=== PATIENT | female | born 1995 | race Caucasian/White ===

== ENCOUNTER 2024-03-22 10:30 | Outpatient (RCR) | payer MEDICAID, SELFPAY | END 2024-07-20 23:59 | disposition home or self-care (01) | PROVIDERS: PCP Family Medicine; Visit Provider Family Medicine | DX: M25.532 Pain in left wrist (principal); Z51.89 Encounter for other specified aftercare | CPT/HCPCS: 97035; 97110; 97140; 97165; X5282 ==

== ENCOUNTER 2024-07-14 11:38 | Outpatient (CLI) | payer MEDICAID, SELFPAY ==
--- OUTSIDE RECORDS SUMMARY | 2024-07-14 11:41 | XMS_ITS | Clinical Summary ---
Author Organization Done In :[facility] Address [place], [place] [address] Care Team Providers Care Veterinary Medicine Doctor Name Role Phone Maria RKaylyn DO Primary Care Provider [phone]- [phone] Allergies Active Allergy Reactions Criticality Noted Date Comments Azithromycin Edema 01/09/2019 Medications Medication Sig Dispensed Refills Start Date End Date Status VENTOLIN HFA 90 mcg/actuation inhaler Inhale 1-2 Puffs by mouth every 4 hours if needed. 5 12/13/2018 Active cholecalciferol, Vitamin D3, 5,000 unit tab tabletIndications:V itamin D deficiency Take 1 Tablet (5,000 units) by mouth once daily. Take with food to enhance absorption. Will recheck levels in 3 months. 90 Tablet 1 03/11/2023 Active medication order composer Natural Factors Wilcox-3 1000 mg combined EPA / DHA daily 0 04/05/2023 Active testosterone cypionate 200 mg/mL injection Weekly testosterone injections 04/25/2024 Active vilazodone 20 mg tabletIndications:D ysthymia,ARTURO (generalized anxiety disorder) Take 1 Tablet (20 mg) by mouth once daily. 90 Tablet 1 04/25/2024 Active gabapentin (NEURONTIN) 100 mg capsuleIndications: Left elbow pain Take 2 caps at night of 1 week, then increase to 3 caps(300mg) at night. 90 Capsule 2 06/08/2024 Active buPROPion (WELLBUTRIN XL) 150 mg Extended-Release tabletIndications:D ysthymia Take 1 Tablet (150 mg) by mouth once daily in the morning. 90 Tablet 08/25/2024 Active methylphenidate HCl (RITALIN ER) 10 mg Extended-Release tabletIndications:A ttention and concentration deficit Take 1 Tablet (10 mg) by mouth once daily. 30 Tablet 06/26/2024 Active methylphenidate HCl (RITALIN ER) 10 mg Extended-Release tabletIndications:A ttention and concentration deficit Take 1 Tablet (10 mg) by mouth once daily. 30 Tablet 07/26/2024 Active methylphenidate HCl (RITALIN ER) 10 mg Extended-Release tabletIndications:A ttention and concentration deficit Take 1 Tablet (10 mg) by mouth once daily. 30 Tablet 08/12/2024 Active Active Problems Problem Noted Date Diagnosed Date Controlled substance agreement signed 08/31/2022 Overview: Signed 07-27-2022. Ewelina Pierce DNP, APRN [employer] Psychiatry Encounters Date Type Department Care Team Description 07/13/2024 4:15 PM CDT Ancillary Procedure [address] [address] Arrived 07/13/2024 Travel 06/15/[address] [address] Stanislav Schmidt MD Results 06/13/2024 3:30 PM CDT Office Visit [address] [address] Ewelina Pierce NP Medication Management (Things are going okay) 06/13/2024 Travel 06/08/2024 12:00 PM CDT Ancillary Procedure [address] [address] 06/08/2024 10:45 AM CDT Office Visit [address] [address] Stanislav Schmidt MD Musculoskeletal Problem (Follow-up LEFT Wrist pain. Pain is now into Elbow /DOO: 06/2023) 06/08/2024 Travel 04/25/2024 1:30 PM CDT Office Visit [address] [address] Ewelina Pierce NP Medication Management 04/25/2024 Travel from Last 3 Months Immunizations Name Administration Dates Next Due COVID-19 vaccine (Moderna 100mcg/0.5mL) PF, MDCeleste 10/08/2021,02/21/2021,01/23/2021 Influenza, IIV4 08/12/2022,,10/29/2020,08/29/20 20,10/03/2015 Tdap 12/09/2021,09/26/2012 Family History Medical History Relation Name Comments Depression Father Lung cancer Paternal Aunt Relation Name Status Comments Father Paternal Aunt Social History Tobacco Use Types Packs/Day Years Used Date Smoking Tobacco: Never Smokeless Tobacco: Never Tobacco Cessation:Counseling Given: Yes Alcohol Use Standard Drinks/Week Comments Yes 0 (1 standard drink = 0.6 oz pure alcohol) Occasionally/few times a month at most - 03/09/2023 PHQ-2 Answer Date Recorded PHQ-2 TOTAL SCORE 4 06/13/2024 Social Connections Answer Date Recorded Frequency of Communication with Friends and Fami ly 0 03/22/2024 Alcohol Use Answer Date Recorded How often do you have a drink containing alcohol ? 2 03/09/2023 Average Number of Drinks Not on file 023 Frequency of Binge Drinking Not on file 02/27 Financial Resource Strain Answer Date R ecorded Difficulty of Paying Living Expenses 3 03/22/2024 Difficulty of Paying Living Expenses Not on file 03/22/2024 Food Insecurity Answer Date Recorded Worried About Running Out of Food in the Last Ye ar 1 03/22/2024 Transportation Needs Answer Date Record ed Lack of Transportation (Medical) 1 03/22/2024 Housing Stability Answer Date Recorded Unable to Pay for Housing in the Last Year 1 03/22/2024 Sex and Gender Information Value Date Recorded Sex Assigned at Not on file Gender Identity Not on file Sexual Orientation Not on file Obstetrics History Last Filed Vital Signs Vital Sign Reading Time Taken Comments Blood Pressure 104/68 06/13/2024 3:23 PM CDT Pulse 74 06/13/2024 3:23 PM CDT Temperature 36.7 ??C (98.1 ??F) 02/09/2023 7:44 AM CD T Respiratory Rate 16 05/25/2023 11:51 AM CDT Oxygen Saturation 98% 06/08/2024 10:50 AM CDT Inhaled Oxygen Concentration - - Weight 71.9 kg (158 lb 8 oz) 06/13/2024 3:23 PM CDT Height 170.2 cm (5' 7) 06/13/2024 3:23 PM CDT Body Mass Index 24.82 06/13/2024 3:23 PM CDT Plan of Treatment Upcoming Encounters Date Type Department Care Team (Late st Contact Info) Description 08/16/2024 9:00 AM CDT Appointment [facility] EMG/EEG/EP [address] [place] [address] Kathie Newton MD [address] [facility] [address] [place] [address] 08/21/2024 3:00 PM CDT Office Visit [facility] [address] [place] [address] Ewelina Pierce NP [address] [place] [address] Health Maintenance Due Date Last Done Comments Influenza for age 9-49 07/30/2024 , 01/09/2022, 10/29/2020, Additional history exists Pap test for age 21-65 12/09/2024 12/09/2021, 2017 BMI (ht and wt on same day) for age 18+ 06/13/2025 06/13/2024, 03/22/2024, 05/25/2023, Additional history exists Depression screening for age 12+ 06/15/2025 06/15/2024, 06/13/2024, 04/25/2024, Additional history exists Tetanus booster 12/09/2031 12/09/2021, 09/26/2012 Tdap Completed 12/09/2021, 09/26/2012 HIV for age 15-65 Completed 02/09/2023 Hepatitis C screening for age 18-79 Completed 02/09/2023 COVID-19 vaccine series Completed 09/22/20 23, 09/18/2022, 10/08/2021, Additional history exists Pneumococcal series for age 6-64 Aged Out No longer eligible based on patient's age to complete this topic Procedures Procedure Name Priority Date/Time Associated Diagnosis Comments MR ELBOW LEFT WO Routine 07/13/2024 3:42 PM CDT Left elbow pain Numbness of left hand XR ELBOW 3 VIEWS LEFT Routine 06/08/2024 11:53 AM CDT Left elbow pain LC HIV-1/O/2, 4TH GENERATION Routine 02/09/2023 8:24 AM CDT Encounter for screening for HIV LC HCV ANTIBODY RFX TO QUANT PCR Routine 02/09/2023 8:24 AM CDT Need for hepatitis C screening test AUTO RENTAL SUPERVISOR THIN PREP PAP SCREEN IMAGED Routine 12/09/2021 12:30 PM DOWEL INSERTING MACHINE OPERATOR from Last 3 Months or Most Recently Relevant to Health Maintenance Results * MR ELBOW LEFT WO (07/13/2024 3:42 PM CDT) Anatomical Region Laterality Modality ELBOW L Magnetic Resonan ce 07/14/2024 7:57 AM CDT Impressions 07/14/2024 7:57 AM CDT 1. Unremarkable MRI of the left elbow. No evidence for stress reaction. Dictated by Miguel Marie MD @ 07/14/2024 7:57:49 AM (Electronically Signed) Narrative 07/14/2024 7:57 AM CDT For Patients: ??As a result of the Century Cures Act, medical imaging exams and procedure reports are released immediately into your electronic medical record. ??You may view this report before your referring provider. ??If you have questions, please contact your health care provider. EXAM: MRI OF THE LEFT ELBOW, WITHOUT CONTRAST CLINICAL INDICATION: Left elbow pain. Left hand numbness. Abnormal radiographs. COMPARISON PLAIN FILMS: 06/08/2024. COMPARISON CROSS-SECTIONAL IMAGING STUDIES: None. TECHNICAL: Axial, sagittal and coronal T1, PD, PD FS ??and STIR images. ??Surface coil. FINDINGS: MYOTENDINOUS STRUCTURES: Biceps: Intact. ??No tendinosis, tendon tear or bursitis. Common Extensor Tendon and Forearm Extensors: No tendon tear, tendinosis or muscle strain. Common Flexor Tendon and Forearm Flexors: No tendon tear, tendinosis or muscle strain. Brachialis: No strain or tear. Supinator: No strain or tear. Triceps: Normal. - LIGAMENTS: Medial Ligament: The ulnar collateral ligament is intact. Lateral Ligaments: The radial collateral ligament is intact. The lateral ulnar collateral ligament is intact. - ELBOW JOINT: Joint Space: Physiologic quantity of joint fluid. No synovitis. No loose bodies. Articular Cartilage: ??No cartilage defect or osteochondral abnormality. Radiohumeral Plica: No pathologic thickening or enlargement. Periarticular Ganglion/Cyst: None present. - BONES: No intramedullary edema or periosteal reaction to suggest stress reaction. No fracture or contusion. No osseous lesion. No evidence for avascular necrosis. - NERVES: Ulnar: Normal; without thickening, edema, mass or subluxation. Median: Normal. Radial: Normal. - SOFT TISSUES: There is no soft tissue mass or fluid collection. ?? Procedure Note Miguel Marie MD - 07/14/2024 For Patients: As a result of the Century Cures Act, medical imagingexams and procedure reports are released immediately into your electronicmedical record. You may view this report before your referring provider.If you have questions, please contact your health care provider. EXAM: MRI OF THE LEFT ELBOW, WITHOUT CONTRAST CLINICAL INDICATION: Left elbow pain. Left hand numbness. Abnormal radiographs. COMPARISON PLAIN FILMS: 06/08/2024. COMPARISON CROSS-SECTIONAL IMAGING STUDIES: None. TECHNICAL: Axial, sagittal and coronal T1, PD, PD FS and STIR images. Surfacecoil. FINDINGS: MYOTENDINOUS STRUCTURES: Biceps: Intact. No tendinosis, tendon tear or bursitis. Common Extensor Tendon and Forearm Extensors: No tendon tear, tendinosisor muscle strain. Common Flexor Tendon and Forearm Flexors: No tendon tear, tendinosis ormuscle strain. Brachialis: No strain or tear. Supinator: No strain or tear. Triceps: Normal. - LIGAMENTS: Medial Ligament: The ulnar collateral ligament is intact. Lateral Ligaments: The radial collateral ligament is intact. The lateralulnar collateral ligament is intact. - ELBOW JOINT: Joint Space: Physiologic quantity of joint fluid. No synovitis. No loosebodies. Articular Cartilage: No cartilage defect or osteochondral abnormality. Radiohumeral Plica: No pathologic thickening or enlargement. Periarticular Ganglion/Cyst: None present. - BONES: No intramedullary edema or periosteal reaction to suggest stress reaction.No fracture or contusion. No osseous lesion. No evidence for avascularnecrosis. - NERVES: Ulnar: Normal; without thickening, edema, mass or subluxation. Median: Normal. Radial: Normal. - SOFT TISSUES: There is no soft tissue mass or fluid collection. IMPRESSION: 1. Unremarkable MRI of the left elbow. No evidence for stress reaction. Dictated by Miguel Marie MD @ 07/14/2024 7:57:49 AM (Electronically Signed) Stanislav Schmidt MD MR * XR ELBOW 3 VIEWS LEFT (06/08/2024 11:53 AM CDT) Anatomical Region Laterality Modality ELBOW L Computed Radiogr aphy 06/12/2024 6:19 AM CDT Narrative 06/12/2024 6:19 AM CDT For Patients: ??As a result of the Cures Act, medical imaging exams and procedure reports are released immediately into your electronic medical record. ??You may view this report before your referring provider. ??If you have questions, please contact your health care provider. Indication: Elbow pain Technique: Left elbow 3 views Comparison: None Findings: Bones: Incidental bone island within the posterior olecranon. Increased density within the medial humeral epicondyle. Joint spaces: Joint spaces are well maintained. No degenerative changes. No sign of joint effusion. ?? Soft tissues: Unremarkable. ?? Impression: Possible stress reaction in the subcortical bone of the medial humeral epicondyle. Dictated by Dalton Huizar MD @ 06/12/2024 6:19:31 AM (Electronically Signed) Procedure Note Dalton Huizar MD - 06/12/2024 For Patients: As a result of the Cures Act, medical imagingexams and procedure reports are released immediately into your electronicmedical record. You may view this report before your referring provider.If you have questions, please contact your health care provider. Indication: Elbow pain Technique: Left elbow 3 views Comparison: None Findings: Bones: Incidental bone island within the posterior olecranon. Increaseddensity within the medial humeral epicondyle. Joint spaces: Joint spaces are well maintained. No degenerative changes.No sign of joint effusion. Soft tissues: Unremarkable. Impression: Possible stress reaction in the subcortical bone of the medial humeralepicondyle. Dictated by Dalton Huizar MD @ 06/12/2024 6:19:31 AM (Electronically Signed) Stanislav Schmidt MD GENERAL IMAGING * LC HCV ANTIBODY RFX TO QUANT PCR (02/09/2023 8:24 AM CDT) [facility] HCV Ab Non Reactive Non Reactive 02/11/2023 2:08 PM CDT [facility] Blood BLOOD SPECIMEN / Unknown Venipuncture / Unknown 02/09/2023 8:24 AM CDT 02/09/2023 8:24 AM CDT Narrative [facility] - 02/11/2023 2:08 PM CDT Performed at: ??[address] ??[id number] Cereal Maker: Harjeet Lutz MD, Phone: ??[phone] Donna [facility]ORAT[facility] ([facility]) [address] [place] [address] * LC HIV-1/O/2, 4TH GENERATION (02/09/2023 8:24 AM CDT) [facility] HIV Scr 4th Gen Non Reactive Non Reactive 02/11/2023 2:08 PM CDT [facility] Comment: HIV Negative HIV-1/HIV-2 antibodies and HIV-1 p24 antigen were NOT detected. There is no laboratory evidence of HIV infection. Blood BLOOD SPECIMEN / Unknown Venipuncture / Unknown 02/09/2023 8:24 AM CDT 02/09/2023 8:24 AM CDT Narrative [facility] - 02/11/2023 2:08 PM CDT Performed at: ??01 - [facility] [address] [place], [place] ??[id number] Cereal Maker: Harjeet Lutz MD, Phone: ??[phone] Donna MAST [facility]ORAT[facility] ([facility]) [facility] [place] [address], * AUTO RENTAL SUPERVISOR THIN PREP PAP SCREEN IMAGED (12/09/2021 12:30 PM DOWEL INSERTING MACHINE OPERATOR) Case Report Gynecologic Cytology Report ? Case: [id number] ? Authorizing Provider: ??Yodit Solorzano PA-C ?Collected: ? 12/09/2021 1230 ? Ordering Location: ? [facility] ?Received: ?12/10/2021 0846 ? First Screen: ?Jane Cote ? Specimen: ?AUTO RENTAL SUPERVISOR ThinPrep Vial Screening, Cervical/Vaginal ? 12/17/2021 1:52 PM DOWEL INSERTING MACHINE OPERATOR [facility] [employer] [facility] INTERPRETATION/ RESULT NEGATIVE FOR INTRAEPITHELIAL LESION OR MALIGNANCY (NIL) (none) 12/17/2021 1:52 PM DOWEL INSERTING MACHINE OPERATOR [facility] IMEN ADEQUACY Satisfactory for evaluation No endocervical component seen 12/17/2021 1:52 PM DOWEL INSERTING MACHINE OPERATOR [facility] HPV REQUEST HPV if ASCUS 12/17/2021 1:52 PM DOWEL INSERTING MACHINE OPERATOR [facility] Date of LMP 12/09/2021 12/17/2021 1:52 PM DOWEL INSERTING MACHINE OPERATOR [facility] Last Pap Date 12/17/2021 1:52 PM DOWEL INSERTING MACHINE OPERATOR [facility] Comment:2018 Last Pap Result NIL 1:52 PM DOWEL INSERTING MACHINE OPERATOR [facility] Additional Information 12/17/2021 1:52 PM DOWEL INSERTING MACHINE OPERATOR [facility] Comment: Interpreted at [facility] [employer] [facility] - [address], [place] [address] Automated Review Successful 12/17/2021 1:52 PM DOWEL INSERTING MACHINE OPERATOR [facility] Comment:Specimen processed s uccessfully by automated assistant store leader device, ThinPrep Imaging System, [employer] Note The pap test is a screening technique, not a diagnostic procedure. It is used primarily to screen for squamous cancers and precursor lesions. Published studies have shown that it is subject to both false negative and false positive results. The pap test should not be used as the sole means to diagnose or exclude pre-malignant and malignant lesions. 12/17/2021 1:52 PM DOWEL INSERTING MACHINE OPERATOR [facility] [employer], [employer] [facility] Other (Cervical/Vagina l) 12/09/2021 12:30 PM DOWEL INSERTING MACHINE OPERATOR 12/10/2021 8:46 AM DOWEL INSERTING MACHINE OPERATOR February Jeanine MAST-C PATHOLOGY/CYTOLOGY [facility] [address] [place] [address], from Last 3 Months or Most Recently Relevant to Health Maintenance Care Teams Veterinary Medicine Doctor Relationship Specialty Start Date End Date Kaylyn Heck DO [address] [place] [address] PCP - General Family Practice 03/22/24
== END 2024-07-14 11:39 | disposition home or self-care (01) ==
PROVIDERS: PCP Family Medicine; Visit Provider Obstetrics & Gynecology
DX: N64.52 Nipple discharge (principal); Z79.899 Other long term (current) drug therapy
CPT/HCPCS: 80076; 84146; 84403; 84443

== ENCOUNTER 2024-09-25 13:23 | Outpatient (CLI) | payer MEDICAID, BC, SELFPAY ==
--- OUTSIDE RECORDS SUMMARY | 2024-09-25 14:06 | XMS_ITS | Clinical Summary ---
Author Organization [facility] Address [place], [place] [address] Care Team Providers Care Property Accountant Name Role Phone Maria R, Kaylyn Ugarte DO Primary Care Provider [phone] Allergies Active Allergy Reactions Criticality Noted Date [...] 03/11/2023 Active medication order composer Natural Factors [place]-3 1000 mg combined EPA / DHA daily 0 04/05/2023 Active testosterone cypionate 200 mg/mL injection Weekly testosterone injections 04/25/2024 Active buPROPion (WELLBUTRIN XL) 150 mg Extended-Release tabletIndications:D ysthymia Take 1 Tablet (150 mg) by mouth once daily in the morning. 90 Tablet 08/25/2024 Active methylphenidate HCl (RITALIN ER) 10 mg Extended-Release tabletIndications:M ajor depressive disorder, recurrent, moderate (HC),Attention and concentration deficit Take 1 Tablet (10 mg) by mouth once daily. 30 Tablet 09/18/2024 10/18/2024 Active methylphenidate HCl (RITALIN ER) 10 mg Extended-Release tabletIndications:M ajor depressive disorder, recurrent, moderate (HC),Attention and concentration deficit Take 1 Tablet (10 mg) by mouth once daily. 30 Tablet 10/18/2024 11/17/2024 Active methylphenidate HCl (RITALIN ER) 10 mg Extended-Release tabletIndications:Alva lanc[place] depressive disorder, recurrent, moderate (HC),Attention and concentration deficit Take 1 Tablet (10 mg) by mouth once daily. 30 Tablet 11/17/2024 Active Active Problems Problem Noted Date Diagnosed Date Controlled substance agreement signed 08/31/2022 Overview (08/31/2022): Signed 07-27-2022. Ewelina Pierce DNP PARTY PLAN SALES CONSULTANT PERSONAL BANKING ADVISOR[place] Psychiatry Encounters Date Type Department Care Team Description 08/24/2024 4:00 PM CDT Ancillary Procedure [address] [address] 08/24/2024 3:05 PM CDT Office Visit [facility] [address] [place] [address] Stanislav Schmidt MD Musculoskeletal Problem (Follow-up LEFT Elbow Pain) 08/24/2024 7:00 AM CDT Telemedicine [facility] [address] [place] [address] Ewelina Pierce NP Telehealth; Medication Management (Things are going all right) 08/24/2024 Travel 08/16/2024 9:00 AM CDT - 08/16/2024 11:59 PM CDT Hospital Encounter [facility] EMG/EEG/EP [address] [address] Stanislav Schmidt MD Beck, Elizabeth Haule, MD Left elbow pain 08/16/2024 Travel 07/13/2024 4:15 PM CDT Ancillary Procedure [facility] [address] [place] [address] 07/13/2024 Travel from Last 3 Months Immunizations Name Administration Dates Next Due COVID-19 vaccine (Moderna 100mcg/0.5mL) JOSIAH CRUMP 10/08/2021,02/21/2021,01/23/2021 Influenza, IIV4 08/12/2022, 2,10/29/2020,08/29/20 20,10/03/2015 Tdap 12/09/2021,09/26/2012 Family History Medical History [...] Answer Date Recorded PHQ-2 TOTAL SCORE 4 08/24/2024 Social Connections Answer Date Recorded Frequency of [...] file 03/22/2024 Food Insecurity Answer Date Recorded Do you worry your food will run out before you are able to buy more? 1 03/22/2024 Transportation Needs Answer Date Record ed Lack of Transportation (Medical) 1 03/22/2024 Housing Stability Answer Date Recorded What is your housing situation today? 1 03/22/2024 Sex and Gender Information Value Date Recorded Sex Assigned at Not on file Gender Identity Not on file Sexual Orientation Not on file Obstetrics History Last Filed Vital Signs Vital Sign Reading Time Taken Comments Blood Pressure 114/74 08/24/2024 3:07 PM CDT Pulse 83 08/24/2024 3:07 PM CDT Temperature 36.7 ??C (98.1 ??F) 02/09/2023 7:44 AM C DT Respiratory Rate 16 05/25/2023 11:51 AM CDT Oxygen Saturation 98% 08/24/2024 3:07 PM CDT Inhaled Oxygen Concentration - - Weight 74.6 kg (164 lb 8 oz) 08/24/2024 3:07 PM CDT Height 170.2 cm (5' 7) 06/13/2024 3:23 PM CDT Body Mass Index 25.76 06/13/2024 3:23 PM CDT Plan of Treatment Health Maintenance Due Date Last Done Comments Influenza for age 9-49 07/30/2024 , 01/09/2022, 10/29/2020, Additional history exists Pap test for age 21-65 12/09/2024 12/09/2021, 2017 BMI (ht and wt on same day) for age 18+ 06/13/2025 06/13/2024, 03/22/2024, 05/25/2023, Additional history exists Depression screening for age 12+ 08/24/2025 08/24/2024, 08/24/2024, 06/15/2024, Additional history exists Tetanus booster 12/09/2031 12/09/2021, 09/26/2012 Tdap Completed 12/09/2021, 09/26/2012 HIV for age 15-65 Completed 02/09/2023 Hepatitis C screening for age 18-79 Completed 02/09/2023 COVID-19 vaccine series Completed 08/05/20 24, 09/22/2023, 09/18/2022, Additional history exists Pneumococcal series for age 6-64 Aged Out No longer eligible based on patient's age to complete this topic Procedures Procedure Name Priority Date/Time Associated Diagnosis Comments XR SPINE CERVICAL 2 VIEWS Routine 08/24/2024 4:07 PM CDT Scapulalgia Neck pain on left side Nerve entrapment syndrome of left arm EMG Routine 08/16/2024 Left elbow pain MR ELBOW LEFT WO Routine 07/13/2024 3:42 PM CDT Left elbow pain Numbness of left hand LC HIV-1/O/2, 4TH GENERATION Routine 02/09/2023 8:24 AM CDT Encounter for screening for HIV LC HCV ANTIBODY RFX TO QUANT PCR Routine 02/09/2023 8:24 AM CDT Need for hepatitis C screening test ASSISTANT WRESTLING COACH THIN PREP PAP SCREEN IMAGED Routine 12/09/2021 12:30 PM MARKETING EFFECTIVENESS MANAGER from Last 3 Months or Most Recently Relevant to Health Maintenance Results * XR SPINE CERVICAL 2 VIEWS (08/24/2024 4:07 PM CDT) Anatomical Region Laterality Modality CERVICAL SPINE Computed Radiogr aphy 08/25/2024 3:09 PM CDT Impressions 08/25/2024 3:09 PM CDT No acute bone abnormality. Dictated by Braulio Keys MD @ 08/25/2024 3:09:12 PM (Electronically Signed) Narrative 08/25/2024 3:09 PM CDT For Patients: ??As a result of the Cures Act, medical imaging exams and procedure reports are released immediately into your electronic medical record. ??You may view this report before your referring provider. ??If you have questions, please contact your health care provider. INDICATION: Neck pain on left side. FINDINGS: AP and lateral views of the cervical spine were obtained. There is no acute fracture seen or subluxation. The disc space heights are maintained. There is no prevertebral soft tissue swelling. There is a small spur off the anterior inferior aspect of the C6 vertebral body. Procedure Note Braulio Keys MD - 08/25/2024 For Patients: As a result of the Cures Act, medical imagingexams and procedure reports are released immediately into your electronicmedical record. You may view this report before your referring provider.If you have questions, please contact your health care provider. INDICATION: Neck pain on left side. FINDINGS: AP and lateral views of the cervical spine were obtained. There is noacute fracture seen or subluxation. The disc space heights are maintained.There is no prevertebral soft tissue swelling. There is a small spur offthe anterior inferior aspect of the C6 vertebral body. IMPRESSION: No acute bone abnormality. Dictated by Braulio Keys MD @ 08/25/2024 3:09:12 PM (Electronically Signed) Stanislav Schmidt MD GENERAL IMAGING * EMG (08/16/2024) Stanislav Schmidt MD NEUROLOGY ORD * MR ELBOW LEFT WO (07/13/2024 3:42 [...] For Patients: As a result of the 21st Century Cures Act, medical imagingexams and procedure [...] (Electronically Signed) Stanislav Schmidt MD MR * LC HCV ANTIBODY RFX TO QUANT PCR (02/09/2023 8:24 AM CDT) HCV Ab Non Reactive Non Reactive 02/11/2023 2:08 PM CDT [facility] ([facility]) Blood BLOOD SPECIMEN / Unknown Venipuncture / Unknown 02/09/2023 8:24 AM CDT 02/09/2023 8:24 AM CDT [facility] ([facility]) - 02/11/2023 2:08 PM CDT Performed at: ??[address] ??[id number] Carcass Splitter: Harjeet Lutz MD, Phone: ??[phone] Donna [facility] Performing Organization Address [facility]/ZIP Co de Phone Number [facility] ([facility]) [address] [place] [address], * LC HIV-1/O/2, 4TH GENERATION (02/09/2023 8:24 AM CDT) HIV Scr 4th Gen Non Reactive Non Reactive 02/11/2023 2:08 PM CDT [facility] ([facility]) Comment: HIV Negative HIV-1/HIV-2 antibodies and HIV-1 p24 antigen were NOT detected. There is no laboratory evidence of HIV infection. Blood BLOOD SPECIMEN / Unknown Venipuncture / Unknown 02/09/2023 8:24 AM CDT 02/09/2023 8:24 AM CDT [facility] ([facility]ET) - 02/11/2023 2:08 PM CDT Performed at: ??[address] ??[id number] Carcass Splitter: Harjeet Lutz MD, Phone: ??[phone] Donna [facility] Performing Organization Address City/[facility]/ZIP Co de Phone Number [facility] ([facility]) [address] [place] [address], * ASSISTANT WRESTLING COACH THIN PREP PAP SCREEN IMAGED (12/09/2021 12:30 PM MARKETING EFFECTIVENESS MANAGER) Case Report Gynecologic Cytology Report ? Case: [id number] ? Authorizing Provider: ??Yodit Solorzano PA-C ?Collected: ? 12/09/2021 1230 ? Ordering Location: ? [facility] ?Received: ?12/10/2021 0846 ? First Screen: ?Jane Cote ? Specimen: ?ASSISTANT WRESTLING COACH ThinPrep Vial Screening, Cervical/Vaginal ? 12/17/2021 1:52 PM MARKETING EFFECTIVENESS MANAGER [employer]- ENTRAL LABORATORY INTERPRETATION/ RESULT NEGATIVE FOR INTRAEPITHELIAL LESION OR MALIGNANCY (NIL) (none) 12/17/2021 1:52 PM MARKETING EFFECTIVENESS MANAGER [facility] IMEN ADEQUACY Satisfactory for evaluation No endocervical component seen 12/17/2021 1:52 PM MARKETING EFFECTIVENESS MANAGER [facility]- EN[facility]AL LAB[facility] HPV REQUEST HPV if ASCUS 12/17/2021 1:52 PM MARKETING EFFECTIVENESS MANAGER [facility]-C ENTRAL LABORATORY Date of LMP 12/09/2021 12/17/2021 1:52 PM MARKETING EFFECTIVENESS MANAGER [employer]-[facility] ENTRAL LABORATORY Last Pap Date 12/17/2021 1:52 PM MARKETING EFFECTIVENESS MANAGER [facility]-C ENTRAL LABORATORY Comment:2018 Last Pap Result NIL 1:52 PM MARKETING EFFECTIVENESS MANAGER [facility]- ENTRAR LABORATORY Additional Information 12/17/2021 1:52 PM MARKETING EFFECTIVENESS MANAGER [facility]- ENTRAL LABORATORY Comment: Interpreted at [facility], Central Laboratory - [address], [place] [address] Automated Review Successful 12/17/2021 1:52 PM MARKETING EFFECTIVENESS MANAGER [facility] Comment:Specimen processed s uccessfully by automated spanish interpreter device, iMedXPrep Imaging System, [employer] Note The pap test is a screening technique, not a diagnostic procedure. It is used primarily to screen for squamous cancers and precursor lesions. Published studies have shown that it is subject to both false negative and false positive results. The pap test should not be used as the sole means to diagnose or exclude pre-malignant and malignant lesions. 12/17/2021 1:52 PM MARKETING EFFECTIVENESS MANAGER [facility] Other (Cervical/Vagina l) 12/09/2021 12:30 PM MARKETING EFFECTIVENESS MANAGER 12/10/2021 8:46 AM MARKETING EFFECTIVENESS MANAGER February Jeanine LYNNE PATHOLOGY/CYTOLOGY [facility]-CENTRAL LABORATORY [address] [place] [address], [place] from Last 3 Months or Most Recently Relevant to Health Maintenance Care Teams Property Accountant Relationship Specialty Start Date End Date Kaylyn Heck DO [facility] [address] PCP - General Family Practice 03/22/24
== END 2024-09-25 13:24 | disposition home or self-care (01) ==
PROVIDERS: PCP Family Medicine; Visit Provider Obstetrics & Gynecology
DX: J02.9 Acute pharyngitis, unspecified (principal)
CPT/HCPCS: 84403

== ENCOUNTER 2024-09-26 15:54 | Outpatient (CLI) | payer BC, MEDICAID, SELFPAY ==
--- OUTSIDE RECORDS SUMMARY | 2024-09-26 15:59 | XMS_ITS | Clinical Summary ---
Author Organization [facility] Address [place], [place] [address] Care Team Providers Care Pet Handler Name Role Phone Maria R, Kaylyn Ugarte DO Primary Care Provider [phone]- [phone] Allergies Active Allergy Reactions Criticality Noted Date [...] 03/11/2023 Active medication order composer Natural Factors [place]-3 1000 mg combined EPA / DHA daily [...] Overview (08/31/2022): Signed 07-27-2022. Ewelina Pierce DNP THERAPEUTIC RECREATION DIRECTOR SHOCK ABSORPTION FLOOR LAYER[employer] Psychiatry Encounters Date Type Department Care Team Description 08/24/2024 4:00 PM CDT Ancillary Procedure [address] [address] 08/24/2024 3:05 PM CDT Office Visit [facility] [address] [place] [address] Stanislav Schmidt MD Musculoskeletal Problem (Follow-up LEFT Elbow Pain) 08/24/2024 7:00 AM CDT Telemedicine [facility] [address] [place] [address] Ewelina Pierce NP Telehealth; Medication Management (Things are going all right) 08/24/2024 Travel 08/16/2024 9:00 AM CDT - 08/16/2024 11:59 PM CDT Hospital Encounter [facility]W EMG/EEG/EP [address] [address] Stanislav Schmidt MD Beck, Elizabeth Haule, MD Left elbow pain 08/16/2024 Travel 07/13/2024 4:15 PM CDT Ancillary Procedure [facility] [address] [place] [address] 07/13/2024 Travel from Last 3 Months Immunizations [...] 4 08/24/2024 Social Connections Answer Date Recorded Do you often feel lonely or isolated from those around you? 0 03/22/2024 Alcohol Use Answer Date Recorded [...] 03/22/2024 Transportation Needs Answer Date Record ed Does lack of transportation keep you from medica l appointments? 1 03/22/2024 Does lack of transportation keep you from work, meetings or getting things that you need? 1 03/22/2024 Housing Stability Answer Date Recorded [...] CDT Need for hepatitis C screening test MARKETING CONTENT MANAGER THIN PREP PAP SCREEN IMAGED Routine 12/09/2021 12:30 PM [employer] ROOM OPERATOR from Last 3 Months or Most [...] Reactive Non Reactive 02/11/2023 2:08 PM CDT [facility] ([facility]) Blood BLOOD SPECIMEN / Unknown Venipuncture / Unknown 02/09/2023 8:24 AM CDT 02/09/2023 8:24 AM CDT Narrative [facility] ([facility]ET) - 02/11/2023 2:08 PM CDT Performed at: ??[address] - [address] ??[id number] Set And Exhibit Designer: Harjeet Lutz MD, Phone: ??[phone] Donna [facility] Performing Organization Address [facility] Co de Phone Number [facility] ([facility]) [address] [place] [address] * HIV-1/O/2, 4TH GENERATION (02/09/2023 8:24 AM CDT) Pathologist [facility] HIV Scr 4th Gen Non Reactive Non Reactive 02/11/2023 2:08 PM CDT [facility] ([facility]) Comment: HIV Negative HIV-1/HIV-2 antibodies and HIV-1 p24 antigen were NOT detected. There is no laboratory evidence of HIV infection. Blood BLOOD SPECIMEN / Unknown Venipuncture / Unknown 02/09/2023 8:24 AM CDT 02/09/2023 8:24 AM CDT [facility] ([facility]) - 02/11/2023 2:08 PM CDT Performed at: ??[address] ??[id number] Set And Exhibit Designer: Harjeet Lutz MD, Phone: ??[phone] Donna [facility] Performing Organization Address City/[facility]/ZIP Co de Phone Number [facility] ([facility]ET) [address] [place] [address], * MARKETING CONTENT MANAGER THIN PREP PAP SCREEN IMAGED (12/09/2021 12:30 PM COCOA ROOM OPERATOR) Case Report Gynecologic Cytology Report ? Case: [id number] ? Authorizing Provider: ??Yodit Solorzano PA-C ?Collected: ? 12/09/2021 1230 ? Ordering Location: ? [facility] ?Received: ?12/10/2021 0846 ? First Screen: ?Jane Cote ? Specimen: ?MARKETING CONTENT MANAGER ThinPrep Vial Screening, Cervical/Vaginal ? 12/17/2021 1:52 PM COCOA ROOM OPERATOR [employer]-C ENTRAL LABORATORY INTERPRETATION/ RESULT NEGATIVE FOR INTRAEPITHELIAL LESION OR MALIGNANCY (NIL) (none) 12/17/2021 1:52 PM COCOA ROOM OPERATOR [employer]-C ENTRAL LABORATORY IMEN ADEQUACY Satisfactory for evaluation No endocervical component seen 12/17/2021 1:52 PM COCOA ROOM OPERATOR [facility]-C ENTRAL LABORATORY HPV REQUEST HPV if ASCUS 12/17/2021 1:52 PM COCOA ROOM OPERATOR [employer]-C ENTRAL LABORATORY Date of LMP 12/09/2021 12/17/2021 1:52 PM COCOA ROOM OPERATOR [facility]-C ENTRAL LABORATORY Last Pap Date 12/17/2021 1:52 PM COCOA ROOM OPERATOR [facility]-C ENTRAL LABORATORY Comment:2018 Last Pap Result NIL 1:52 PM COCOA ROOM OPERATOR [facility]-C ENTRAL LABORATORY Additional Information 12/17/2021 1:52 PM COCOA ROOM OPERATOR [facility]- ENTRAL LABORATORY Comment: Interpreted at [facility] - [address], [place] [address] Automated Review Successful 12/17/2021 1:52 PM COCOA ROOM OPERATOR [facility]- ENTRAL LABORATORY Comment:Specimen processed s uccessfully by automated sap functional analyst device, InsightETEPrep Imaging System, [employer] Note The pap test is a screening technique, not a diagnostic procedure. It is used primarily to screen for squamous cancers and precursor lesions. Published studies have shown that it is subject to both false negative and false positive results. The pap test should not be used as the sole means to diagnose or exclude pre-malignant and malignant lesions. 12/17/2021 1:52 PM COCOA ROOM OPERATOR [facility]- ENTRGA LABORATORY Other (Cervical/Vagina l) 12/09/2021 12:30 PM COCOA ROOM OPERATOR 12/10/2021 8:46 AM COCOA ROOM OPERATOR February Jeanine LYNNE PATHOLOGY/CYTOLOGY [facility]-C[facility] LABORATORY [address] [place] [address], [place] from Last 3 Months or Most Recently Relevant to Health Maintenance Care Teams Pet Handler Relationship Specialty Start Date End Date Kaylyn Heck DO [address] [place] [address] PCP - General Family Practice 03/22/24
[2024-09-26 23:20] LABS: Chlamydia DNA Amplified* NOT DETECTED (No Detected); GC DNA Amplified* NOT DETECTED (No Detected)
== END 2024-09-26 15:55 | disposition home or self-care (01) ==
LOC: NFLDUCREF 15:55
DX: J02.9 Acute pharyngitis, unspecified (principal)
CPT/HCPCS: 87491; 87591

== ENCOUNTER 2024-11-09 17:00 | Outpatient (RCR) | payer BC, SELFPAY | END 2025-02-16 10:01 | disposition home or self-care (01) | PROVIDERS: PCP Family Medicine; Visit Provider Family Medicine | DX: M54.2 Cervicalgia (principal); M79.602 Pain in left arm; G56.92 Unspecified mononeuropathy of left upper limb; M89.8X1 Other specified disorders of bone, shoulder; M24.112 Other articular cartilage disorders, left shoulder; Z51.89 Encounter for other specified aftercare | CPT/HCPCS: 97110; 97140; 97162 ==

== ENCOUNTER 2024-12-05 14:09 | Outpatient (CLI) | payer BC, SELFPAY ==
[2024-12-05 19:12] LABS: Bacterial Vaginosis* Negative (Negative); Candida glab/krus NOT DETECTED (No Detected); Candida species NOT DETECTED (No Detected); Trichomonas vaginalis NOT DETECTED (No Detected)
[2024-12-05 19:44] LABS: Chlamydia DNA Amplified* NOT DETECTED (No Detected); GC DNA Amplified* NOT DETECTED (No Detected)
[2024-12-08 09:14] LABS: HPV Source Cervical; HPV, High Risk by TMA Not Detected
== END 2024-12-05 14:10 | disposition home or self-care (01) ==
PROVIDERS: Visit Provider Obstetrics & Gynecology
DX: F64.9 Gender identity disorder, unspecified (principal); Z11.3 Encounter for screening for infections with a predominantly sexual mode of transmission; Z12.4 Encounter for screening for malignant neoplasm of cervix; Z11.51 Encounter for screening for human papillomavirus (HPV); Z11.59 Encounter for screening for other viral diseases
CPT/HCPCS: 81513; 86592; 86703; 86706; 86803; 87340; 87481; 87491; 87591; 87624; 87625; 87661; 88141; 88142

== ENCOUNTER 2025-01-01 16:21 | Outpatient (CLI) | payer BC, SELFPAY | END 2025-01-01 16:22 | disposition home or self-care (01) | LOC: NFLDREF 01-09 23:10 | PROVIDERS: Visit Provider Obstetrics & Gynecology | DX: Z79.899 Other long term (current) drug therapy (principal) | CPT/HCPCS: 84403 ==

== ENCOUNTER 2025-07-31 15:55 | Outpatient (CLI) | payer BC, SELFPAY | END 2025-07-31 15:56 | disposition home or self-care (01) | LOC: NFLDREF 08-02 07:03 | PROVIDERS: Visit Provider Obstetrics & Gynecology | DX: F64.9 Gender identity disorder, unspecified (principal); Z79.890 Hormone replacement therapy | CPT/HCPCS: 84403 ==